=== PATIENT | female | born 1930 | race Two or more races ===

== ENCOUNTER 2017-03-30 10:03 | Emergency (ER) | payer OTHER ==
[~2017-03-30] VITALS: Ht 154.9 cm; Wt 77.1 kg
[~2017-03-30 10:03] MED LIST: ATACAND16 MG PO; CELEBREX100 MG PO; NEURONTIN600 MG PO; ORPH100T PO; OSEL75CA PO; PREVACID15 MG PO; REGLAN5 MG/5 ML PO; RELAFEN500 MG PO; TUSSI PRES-B L120 M1 PO; VASOTEC10 MG PO
[2017-03-30] MEDS ORDERED: GABAPENTIN300 MG PO (15:00)
[2017-03-30] MEDS ORDERED: CELEBREX100 MG PO (15:00)
== END 2017-03-30 18:07 | disposition home or self-care (01) ==
LOC: ER 10:03
DX: S13.8XXA Sprain of joints and ligaments of other parts of neck, initial encounter (principal); X50.9XXA Other and unspecified overexertion or strenuous movements or postures, initial encounter; Y93.89 Activity, other specified; Y92.89 Other specified places as the place of occurrence of the external cause; Y99.8 Other external cause status

== ENCOUNTER 2017-07-19 10:22 | Outpatient (CLI) | payer OTHER ==
[~2017-07-19 10:22] MED LIST changes: +GABAPENTIN300 MG PO
== END 2017-07-19 10:30 | disposition home or self-care (01) ==
LOC: RAD 501 10:22
DX: J44.1 Chronic obstructive pulmonary disease with (acute) exacerbation (principal)

== ENCOUNTER 2017-07-20 08:51 | Outpatient (CLI) | payer OTHER | END 2017-07-20 09:04 | disposition home or self-care (01) | LOC: NUCLEAR 08:51 | DX: I27.0 Primary pulmonary hypertension (principal) ==

== ENCOUNTER 2017-10-06 02:48 | Inpatient (IN) | payer OTHER ==
[~2017-10-06] VITALS: Ht 157.5 cm; Wt 81.6 kg
[2017-10-06] MEDS ORDERED: LEVSIN/SL0.125 MG SL (05:58)
[2017-10-06] MEDS ORDERED: ZOFRAN ODT4 MG PO (05:58)
[2017-10-06] MEDS ORDERED: PEPCID40 MG PO (05:58)
== END 2017-10-13 09:26 | disposition home or self-care (01) | DRG 390 ==
LOC: ER 02:48 → MEDJ 20:10
PROC: BW21Y0Z Computerized Tomography (CT Scan) of Abdomen and Pelvis using Other Contrast, Unenhanced and Enhanced (ICD-10-PCS; principal; 2017-10-06)
PROC: BW21Y0Z Computerized Tomography (CT Scan) of Abdomen and Pelvis using Other Contrast, Unenhanced and Enhanced (ICD-10-PCS; 2017-10-10)
DX: K56.690 Other partial intestinal obstruction (principal); I10 Essential (primary) hypertension; M54.2 Cervicalgia; K57.30 Diverticulosis of large intestine without perforation or abscess without bleeding

== ENCOUNTER 2017-10-31 09:46 | Outpatient (CLI) | payer OTHER ==
[~2017-10-31 09:46] MED LIST changes: +LEVSIN/SL0.125 MG SL; +PEPCID40 MG PO; +ZOFRAN ODT4 MG PO
== END 2017-10-31 09:56 | disposition home or self-care (01) ==
LOC: RAD 501 09:46
DX: M54.2 Cervicalgia (principal); M54.5 Low back pain; E78.89 Other lipoprotein metabolism disorders; I80.00 Phlebitis and thrombophlebitis of superficial vessels of unspecified lower extremity; S83.201A Bucket-handle tear of unspecified meniscus, current injury, left knee, initial encounter; S83.242A Other tear of medial meniscus, current injury, left knee, initial encounter; I10 Essential (primary) hypertension; E66.8 Other obesity; D68.8 Other specified coagulation defects; E55.9 Vitamin D deficiency, unspecified; M17.12 Unilateral primary osteoarthritis, left knee

== ENCOUNTER 2018-01-03 12:19 | Outpatient (CLI) | payer OTHER | END 2018-01-03 12:29 | disposition home or self-care (01) | LOC: MAMO-SONO 12:19 | DX: Z12.31 Encounter for screening mammogram for malignant neoplasm of breast (principal); Z87.898 Personal history of other specified conditions; N60.11 Diffuse cystic mastopathy of right breast; N60.12 Diffuse cystic mastopathy of left breast ==

== ENCOUNTER 2018-01-18 17:50 | Inpatient (IN) | payer OTHER ==
[~2018-01-18] VITALS: Ht 157.5 cm; Wt 80.3 kg
[2018-01-18] MEDS ORDERED: ZANTAC150 M3 (17:59)
== END 2018-01-22 11:19 | disposition home or self-care (01) | DRG 390 ==
LOC: ER 17:50 → MEDI 01-19 07:21
DX: K56.690 Other partial intestinal obstruction (principal); I10 Essential (primary) hypertension; K57.30 Diverticulosis of large intestine without perforation or abscess without bleeding

== ENCOUNTER 2018-03-10 07:12 | Day surgery (SDC) | payer OTHER ==
[~2018-03-10 07:12] MED LIST changes: +ZANTAC150 M3
== END 2018-03-10 22:00 | disposition home or self-care (01) ==
LOC: CIR.AMB 07:12
DX: D05.11 Intraductal carcinoma in situ of right breast (principal)

== ENCOUNTER 2018-04-11 14:03 | Outpatient (CLI) | payer OTHER | END 2018-04-11 14:09 | disposition home or self-care (01) | LOC: LAB 14:03 | DX: N61.1 Abscess of the breast and nipple (principal) ==

== ENCOUNTER 2018-05-16 10:34 | Outpatient (CLI) | payer OTHER | END 2018-05-16 17:00 | disposition home or self-care (01) | LOC: MRI 10:34 | DX: M54.5 Low back pain (principal) | CPT/HCPCS: 72148 ==

== ENCOUNTER 2018-05-31 08:54 | Outpatient (CLI) | payer OTHER | END 2018-05-31 09:30 | disposition home or self-care (01) | LOC: NUCLEAR 08:54 | DX: M54.5 Low back pain (principal) | CPT/HCPCS: 78315; A9503 ==

== ENCOUNTER 2019-01-06 01:11 | Emergency (ER) | payer OTHER ==
[~2019-01-06] VITALS: Ht 157.5 cm; Wt 79.8 kg
== END 2019-01-06 12:03 | disposition home or self-care (01) ==
LOC: ER 01:11
DX: K57.30 Diverticulosis of large intestine without perforation or abscess without bleeding (principal); I86.8 Varicose veins of other specified sites; R10.13 Epigastric pain; R14.0 Abdominal distension (gaseous)

== ENCOUNTER 2019-02-13 10:57 | Outpatient (CLI) | payer OTHER | END 2019-02-13 11:06 | disposition home or self-care (01) | LOC: MAMO-SONO 10:57 | DX: N60.11 Diffuse cystic mastopathy of right breast (principal); N60.12 Diffuse cystic mastopathy of left breast; D05.11 Intraductal carcinoma in situ of right breast ==

== ENCOUNTER 2019-02-26 10:43 | Outpatient (CLI) | payer OTHER | END 2019-02-26 10:44 | disposition home or self-care (01) | LOC: RX STUDY 10:43 | DX: K30 Functional dyspepsia (principal) ==

== ENCOUNTER 2019-06-13 08:15 | Outpatient (CLI) | payer OTHER | END 2019-06-13 08:27 | disposition home or self-care (01) | LOC: SONOGRAMA 08:15 | DX: K74.60 Unspecified cirrhosis of liver (principal); K57.30 Diverticulosis of large intestine without perforation or abscess without bleeding; K21.9 Gastro-esophageal reflux disease without esophagitis ==

== ENCOUNTER 2019-09-29 15:35 | Inpatient (IN) | payer OTHER ==
[~2019-09-29] VITALS: Ht 152.4 cm; Wt 80.7 kg
[2019-09-29] MEDS ORDERED: PROTONIX20 MG (15:51)
[2019-10-01] MEDS ORDERED: ANASTROZOLE1 MG (14:52)
[2019-10-01] MEDS ORDERED: ENALAPRIL-HCTZ1 EACH (14:52)
[2019-10-12] MEDS ORDERED: HYOSCYAMINE0.125 M1 SL (13:43)
[2019-10-12] MEDS ORDERED: INTESTINEX680 M1 PO ×2 (13:44→13:46)
[2019-10-12] MEDS ORDERED: VASOTEC10 MG PO (13:44)
[2019-10-12] MEDS ORDERED: ULTRACET PO (13:45)
[2019-10-12] MEDS ORDERED: PEPCID AC20 MG PO (13:46)
== END 2019-10-12 15:19 | disposition home or self-care (01) | DRG 389 ==
LOC: ER 15:35 → MEDI 09-30 10:29
PROVIDERS: ADMIT Internal Medicine Cardiovascular Disease; ATTEND Internal Medicine Cardiovascular Disease
PROC: 3E0F7GC Introduction of Other Therapeutic Substance into Respiratory Tract, Via Natural or Artificial Opening (ICD-10-PCS; 2019-09-30)
PROC: 02HV33Z Insertion of Infusion Device into Superior Vena Cava, Percutaneous Approach (ICD-10-PCS; principal; 2019-10-01)
PROC: 4A033R1 Measurement of Arterial Saturation, Peripheral, Percutaneous Approach (ICD-10-PCS; 2019-10-08)
PROC: CB2YYZZ Tomographic (Tomo) Nuclear Medicine Imaging of Respiratory System using Other Radionuclide (ICD-10-PCS; 2019-10-09)
PROC: B24BZZZ Ultrasonography of Heart with Aorta (ICD-10-PCS; 2019-10-10)
DX: K56.690 Other partial intestinal obstruction (principal); J45.901 Unspecified asthma with (acute) exacerbation; J44.1 Chronic obstructive pulmonary disease with (acute) exacerbation; J90 Pleural effusion, not elsewhere classified; I10 Essential (primary) hypertension; R09.02 Hypoxemia; D05.11 Intraductal carcinoma in situ of right breast

== ENCOUNTER 2019-10-22 06:59 | Emergency (ER) | payer OTHER ==
[~2019-10-22] VITALS: Ht 154.9 cm; Wt 61.2 kg
[~2019-10-22 06:59] MED LIST changes: +ANASTROZOLE1 MG; +ENALAPRIL-HCTZ1 EACH; +HYOSCYAMINE0.125 M1 SL; +INTESTINEX680 M1 PO; +PEPCID AC20 MG PO; +PROTONIX20 MG; +ULTRACET PO
== END 2019-10-22 16:29 | disposition home or self-care (01) ==
LOC: ER 06:59
DX: R10.84 Generalized abdominal pain (principal); Z03.818 Encounter for observation for suspected exposure to other biological agents ruled out; R11.2 Nausea with vomiting, unspecified

== ENCOUNTER 2019-11-01 08:49 | Emergency (ER) | payer OTHER ==
[~2019-11-01] VITALS: Ht 154.9 cm; Wt 68.0 kg
[2019-11-01] MEDS ORDERED: PEPCID AC10 MG (09:05)
== END 2019-11-01 16:45 | disposition home or self-care (01) ==
LOC: ER 08:49
DX: R10.32 Left lower quadrant pain (principal)

== ENCOUNTER 2019-11-19 09:53 | Emergency (ER) | payer OTHER ==
[~2019-11-19] VITALS: Ht 157.5 cm; Wt 70.3 kg
[~2019-11-19 09:53] MED LIST changes: +PEPCID AC10 MG
[2019-11-19] MEDS ORDERED: PRILOSEC OTC20 MG (10:14)
[2019-11-19] MEDS ORDERED: ARIMIDEX (10:15)
== END 2019-11-19 20:12 | disposition home or self-care (01) ==
LOC: ER 09:53
DX: R63.0 Anorexia (principal); R53.1 Weakness; R19.7 Diarrhea, unspecified; S70.01XA Contusion of right hip, initial encounter; W01.198A Fall on same level from slipping, tripping and stumbling with subsequent striking against other object, initial encounter; Y93.89 Activity, other specified; Y92.012 Bathroom of single-family (private) house as the place of occurrence of the external cause; Y99.8 Other external cause status

== ENCOUNTER 2020-02-20 09:42 | Outpatient (CLI) | payer OTHER ==
[~2020-02-20 09:42] MED LIST changes: +ARIMIDEX; +PRILOSEC OTC20 MG
== END 2020-02-20 16:55 | disposition home or self-care (01) ==
LOC: MAMO-SONO 09:42
PROVIDERS: ATTEND Surgery
DX: N60.11 Diffuse cystic mastopathy of right breast (principal); N60.12 Diffuse cystic mastopathy of left breast; Z12.31 Encounter for screening mammogram for malignant neoplasm of breast; C50.411 Malignant neoplasm of upper-outer quadrant of right female breast

== ENCOUNTER 2020-03-10 14:55 | Outpatient (CLI) | payer OTHER | END 2020-03-10 15:04 | disposition home or self-care (01) | LOC: TOM 14:55 | PROVIDERS: ATTEND Surgery | DX: I25.10 Atherosclerotic heart disease of native coronary artery without angina pectoris (principal); J91.8 Pleural effusion in other conditions classified elsewhere ==

== ENCOUNTER 2020-09-12 07:48 | Outpatient (CLI) | payer OTHER | END 2020-09-12 07:51 | disposition home or self-care (01) | LOC: NUCLEAR 07:48 | PROVIDERS: ATTEND Internal Medicine Cardiovascular Disease | DX: I25.10 Atherosclerotic heart disease of native coronary artery without angina pectoris (principal) | CPT/HCPCS: 78452; 93017; A9500; J1250 ==

== ENCOUNTER 2020-09-21 14:03 | Emergency (ER) | payer OTHER ==
[~2020-09-21] VITALS: Ht 157.5 cm; Wt 80.3 kg
== END 2020-09-21 18:57 | disposition home or self-care (01) ==
LOC: ER 14:03
DX: I87.2 Venous insufficiency (chronic) (peripheral) (principal); R60.0 Localized edema; M79.605 Pain in left leg; M79.604 Pain in right leg

== ENCOUNTER 2021-06-02 09:33 | Outpatient (CLI) | payer OTHER | END 2021-06-02 09:34 | disposition home or self-care (01) | LOC: MAMO-SONO 09:33 | PROVIDERS: ATTEND Emergency Medicine Pediatric Emergency Medicine | DX: C50.412 Malignant neoplasm of upper-outer quadrant of left female breast (principal); E66.2 Morbid (severe) obesity with alveolar hypoventilation; Z68.30 Body mass index [BMI] 30.0-30.9, adult; M17.12 Unilateral primary osteoarthritis, left knee; M51.06 Intervertebral disc disorders with myelopathy, lumbar region; M51.37 Other intervertebral disc degeneration, lumbosacral region; M54.50 Low back pain, unspecified; E55.9 Vitamin D deficiency, unspecified; E66.8 Other obesity ==

== ENCOUNTER 2022-01-04 11:03 | Outpatient (CLI) | payer OTHER | END 2022-01-04 11:11 | disposition home or self-care (01) | LOC: TOM 11:03 | PROVIDERS: ATTEND Internal Medicine Gastroenterology | DX: R10.9 Unspecified abdominal pain (principal); R19.5 Other fecal abnormalities; K57.30 Diverticulosis of large intestine without perforation or abscess without bleeding ==

== ENCOUNTER 2022-03-15 09:52 | Outpatient (CLI) | payer OTHER | END 2022-03-15 09:55 | disposition home or self-care (01) | LOC: RAD 09:52 | PROVIDERS: ATTEND Internal Medicine Cardiovascular Disease | DX: J90 Pleural effusion, not elsewhere classified (principal) ==

== ENCOUNTER 2022-03-23 07:56 | Outpatient (CLI) | payer OTHER | END 2022-03-23 07:57 | disposition home or self-care (01) | LOC: NUCLEAR 07:56 | PROVIDERS: ATTEND Internal Medicine Cardiovascular Disease | DX: I25.10 Atherosclerotic heart disease of native coronary artery without angina pectoris (principal) | CPT/HCPCS: 78452; 93017; A9500; J0153 ==

== ENCOUNTER 2022-05-11 07:19 | Outpatient (CLI) | payer OTHER | END 2022-05-11 07:22 | disposition home or self-care (01) | LOC: SONOGRAMA 07:19 | PROVIDERS: ATTEND Internal Medicine Gastroenterology | DX: K74.60 Unspecified cirrhosis of liver (principal); R74.01 Elevation of levels of liver transaminase levels ==

== ENCOUNTER 2022-05-17 11:51 | Outpatient (CLI) | payer OTHER | END 2022-05-17 11:59 | disposition home or self-care (01) | LOC: TOM 11:51 | PROVIDERS: ATTEND Internal Medicine Pulmonary Disease | DX: J45.30 Mild persistent asthma, uncomplicated (principal); R06.02 Shortness of breath ==